=== PATIENT | male | born 1970 | race Caucasian/White ===

== ENCOUNTER 2017-05-11 19:06 | Emergency (ER) | payer MEDICAID ==
[~2017-05-11] VITALS: Ht 177.8 cm; Wt 79.4 kg
[2017-05-11 19:39] VITALS: BP 125/78
== END 2017-05-12 01:00 | disposition left against medical advice (07) ==
LOC: ER 19:13
DX: M79.89 Other specified soft tissue disorders (principal); Z53.21 Procedure and treatment not carried out due to patient leaving prior to being seen by health care provider

== ENCOUNTER 2017-06-21 16:45 | Emergency (ER) | payer MEDICAID ==
[~2017-06-21] VITALS: Ht 177.8 cm; Wt 79.4 kg
[2017-06-21 16:53] VITALS: BP 145/97
== END 2017-06-21 17:55 | disposition home or self-care (01) ==
LOC: EDBD 16:45 → ER 16:45
DX: E46 Unspecified protein-calorie malnutrition (principal); E86.0 Dehydration